=== PATIENT | female | born 1955 | race Caucasian/White ===

== ENCOUNTER 2019-01-05 13:56 | Outpatient (RCR) | payer OTHER | END 2019-01-09 | LOC: PT 13:56 | PROVIDERS: ATTEND Neurological Surgery | DX: M51.16 Intervertebral disc disorders with radiculopathy, lumbar region (principal); M62.81 Muscle weakness (generalized) ==

== ENCOUNTER 2019-01-18 15:56 | Outpatient (RCR) | payer OTHER | END 2019-02-09 | LOC: PT 15:56 | PROVIDERS: ATTEND Neurological Surgery | DX: M51.16 Intervertebral disc disorders with radiculopathy, lumbar region (principal); M62.81 Muscle weakness (generalized) | CPT/HCPCS: 97139 ==